=== PATIENT | male | born 1950 | race Caucasian/White ===

== ENCOUNTER 2017-12-14 17:00 | Outpatient (CLI) | payer BC, MEDICARE | END 2017-12-14 17:01 | disposition home or self-care (01) | LOC: SLEEPLAB 17:00 | PROVIDERS: ATTEND Internal Medicine Critical Care Medicine | DX: G47.33 Obstructive sleep apnea (adult) (pediatric) (principal) | CPT/HCPCS: 95806 ==

== ENCOUNTER 2018-02-09 19:30 | Outpatient (CLI) | payer BC, MEDICARE | END 2018-02-09 19:31 | disposition home or self-care (01) | LOC: SLEEPLAB 19:30 | PROVIDERS: ATTEND Internal Medicine Critical Care Medicine | DX: G47.33 Obstructive sleep apnea (adult) (pediatric) (principal); R06.83 Snoring; G47.10 Hypersomnia, unspecified; E66.9 Obesity, unspecified; Z68.23 Body mass index [BMI] 23.0-23.9, adult; Z98.84 Bariatric surgery status | CPT/HCPCS: 95811 ==

== ENCOUNTER 2021-12-23 15:19 | Outpatient (CLI) | payer BC, MEDICARE | END 2021-12-23 15:20 | disposition home or self-care (01) | LOC: SCSRAD 15:19 | PROVIDERS: ATTEND Family Medicine | DX: R07.89 Other chest pain (principal) | CPT/HCPCS: 71120 ==